=== PATIENT | female | born 1995 | race African-American/Black ===

== ENCOUNTER 2022-06-03 17:28 | Emergency (ER) | payer MEDICAID ==
[~2022-06-03] VITALS: Ht 149.9 cm; Wt 71.0 kg
[2022-06-03 18:41] VITALS: BP 110/71
== END 2022-06-03 21:22 | disposition left against medical advice (07) ==
LOC: ER 17:28
DX: Z53.21 Procedure and treatment not carried out due to patient leaving prior to being seen by health care provider (principal)